=== PATIENT | male | born 1945 | race Two or more races ===

== ENCOUNTER → 2017-12-27 | Outpatient (CLI) | payer OTHER | END | disposition home or self-care (01) | LOC: CVU 07:34 | PROVIDERS: ATTEND Nurse Practitioner | DX: I08.0 Rheumatic disorders of both mitral and aortic valves (principal); E11.21 Type 2 diabetes mellitus with diabetic nephropathy; E78.2 Mixed hyperlipidemia; R06.02 Shortness of breath; I10 Essential (primary) hypertension; Z87.891 Personal history of nicotine dependence | CPT/HCPCS: 93306 ==